=== PATIENT | female | born 1975 | race Caucasian/White ===

== ENCOUNTER → 2021-12-12 | Outpatient (CLI) | payer OTHER ==
--- NOTE | 2021-12-12 14:38 | MR ---
EXAMINATION TYPE: MR brain wo con DATE OF EXAM: 12/12/2021 1:07 PM COMPARISON: NONE HISTORY: DIZZINESS AND GIDDINESS, MAYERS Multiplanar and multispin-echo imaging of the brain was performed . The ventricles, basal cisterns and sulci overlying the cerebral convexities are within normal limits. There is no evidence for midline shift or mass effect. Acute intracranial hemorrhage or extra-axial collection is not evident. The brain parenchyma reveals no abnormal increased signal. No acute edema is identified. The paranasal sinuses and mastoid air cells are well-aerated. IMPRESSION: Unremarkable MRI of the brain.
--- NOTE | 2021-12-12 17:07 | US ---
EXAMINATION TYPE: US carotid duplex BILAT DATE OF EXAM: 12/12/2021 COMPARISON: NONE CLINICAL HISTORY: 46-year-old female R42 INTERMITTENT LIGHTHEADEDNESS. Left ear stabbing pain, headac hes, no h/o stroke TECHNIQUE: Carotid duplex ultrasound examination. Indirect Doppler criteria was utilized. FINDINGS: EXAM MEASUREMENTS: RIGHT: Peak Systolic Velocity (PSV) cm/sec ----- Right CCA: 93.0 ----- Right ICA: 92.7 ----- Right ECA: 84.8 ICA/CCA ratio: 1.0 RIGHT: End Diastole cm/sec ----- Right CCA: 19.2 ----- Right ICA: 57.9 ----- Right ECA: 15.3 LEFT: Peak Systolic Velocity (PSV) cm/sec ----- Left CCA: 104 ----- Left ICA: 84.3 ----- Left ECA: 79.4 ICA/CCA ratio: 0.8 LEFT: End Diastole cm/sec ----- Left CCA: 22.7 ----- Left ICA: 19.7 ----- Left ECA: 11.5 VERTEBRALS (direction of flow): Right Vertebral: Antegrade Left Vertebral: Antegrade Rhythm: Normal BUILDING CONSTRUCTION CONTRACTOR NOTES: Mild homogeneous plaque with no stenosis seen IMPRESSION: No hemodynamically significant internal carotid artery stenosis on either side. Criteria for Assigning % of Stenosis / Diameter reduction (Estimation based on the indirect measurements of the internal carotid artery velocities (ICA PSV). 1. Normal (no stenosis)=ICA PSV < 125 cm/s: ratio < 2.0: ICA EDV<40 cm/s. 2. Less than 50% stenosis=ICA PSV < 125 cm/s: ratio < 2.0: ICA EDV<40 cm/s. 3. 50 to 69% stenosis=ICA PSV of 125 to 230 cm/s: ration 2.0 ? 4.0: ICA EDV 40-100 cm/s. 4. Greater than 70% stenosis to near occlusion= ICA PSV > 230 cm/s: ratio > 4.0: ICA EDV > 100 cm/s. 5. Near occlusion= ICA PSV velocities may be low or undetectable: variable ratio and ICA EDV. 6. Total occlusion=unable to detect flow.
== END | disposition home or self-care (01) ==
LOC: RADMRIMAIN 12:24 → MERGE 12:30
PROVIDERS: ATTEND Family Medicine
DX: R42 Dizziness and giddiness (principal); R51.9 Headache, unspecified
CPT/HCPCS: 70551; 93880

== ENCOUNTER 2023-10-09 17:52 | Emergency (ER) | payer OTHER ==
[2023-10-09 17:59] VITALS: TEMP 98.1
--- NOTE | 2023-10-09 18:53 | ED ---
Abdominal Pain HPI - General Chief Complaint: Abdominal Pain Stated Complaint: severe abd pain Time Seen by Provider: 10/09/23 18:20 Source: patient Mode of arrival: ambulatory Limitations: no limitations - History of Present Illness Initial Comments: Patient is a 48-year-old female with no significant past medical history presenting for right lower quadrant and right hip pain. Patient states 2 weeks ago these pains began after having after "getting sick". Patient states she had 1 day of nausea and nonbloody nonbilious emesis which since resolved. The next day her daughter had similar symptoms so she assumed was a viral infection. Took a COVID test and it was negative. Since then she has had intermittent right-sided hip pain and sharp sharp right lower quadrant pains. 1 day last week patient felt like the backs of her thighs felt numb and this has since spontaneously resolved. She denies any back pain, falls or trauma. Denies any urinary incontinence or difficulty urinating. Is currently menstruating. Denies chance of . History of prior ectopic . No fevers, chills, current nausea and vomiting, black or bloody stools, chest pain or shortness of breath. Is currently comfortable, pain does seem to change with positions. - Related Data Previous Rx's Medication Instructions Recorded Omeprazole [PriLOSEC] 40 mg PO DAILY 14 Days #14 cap 10/09/23 Cyclobenzaprine [Flexeril] 10 mg PO TID PRN #30 tab 10/11/23 Lidocaine 5% Patch [Lidoderm 5% 1 patch TOPICAL DAILY PRN #30 patch 10/11/23 Patch] Naproxen Sodium 550 mg PO BID PRN #30 tablet 10/11/23 Allergies Allergy/AdvReac Type Severity Reaction Status Date / Time No Known Allergies Allergy Verified 10/11/23 13:16 Review of Systems ROS Statement: Those systems with pertinent positive or pertinent negative responses have been documented in the HPI. Past Medical History Past Medical History: No Reported History History of Any Multi-Drug Resistant Organisms: None Reported Past Surgical History: Uterine Ablation Additional Past Surgical History / Comment(s): Ectopic removal Past Psychological History: No Psychological Hx Reported Smoking Status: Former smoker Past Alcohol Use History: Daily Past Drug Use History: None Reported General Exam - General Exam Comments Initial Comments: PE: CONSTITUTIONAL: no apparent distress, well appearing SKIN: warm, dry, no jaundice, hives or petechiae EYES: pupils are equally round, extraocular movements intact without nystagmus, clear conjunctiva, non-icteric sclera HENT: normocephalic, atraumatic, moist mucus membranes, oropharynx clear without exudates NECK: full range of motion PULMONARY: clear to auscultation without wheezes, rhonchi, or rales, normal excursion, no accessory muscle use and no stridor CARDIOVASCULAR: regular rate, rhythm, normal S1 and S2. No appreciated murmurs. Strong radial pulses with intact distal perfusion GASTROINTESTINAL: soft, non-tender, non-distended, no palpable masses, no rebound or guarding, tenderness palpation of the right lower quadrant, negative Rovsing sign, no CVA tenderness LYMPHATICS: no edema in lower extremities MUSCULOSKELETAL: Extremities have no gross deformity, no edema, redness, or swelling, no midline spinal tenderness to palpation no tenderness palpation of the right hip or right lower extremity NEUROLOGIC: _a/o x 3, GCS 15, normal mentation and speech. Moves all extremities x 4 without motor or sensory deficit PSYCHIATRIC: _normal mood and affect, thought process is clear and linear Limitations: no limitations Course Vital Signs 10/09/23 10/09/23 17:55 22:39 Temperature 98.1 F Pulse Rate 88 79 Respiratory 18 16 Rate Blood Pressure 112/68 115/62 O2 Sat by Pulse 99 98 Oximetry Medical Decision Making - Medical Decision Making Was pt. sent in by a medical professional or institution (, PA, BEHAVIORAL THERAPIST, urgent care, hospital, or half-way...) When possible be specific @ -No Did you speak to anyone other than the patient for history (EMS, parent, family, police, friend...)? What history was obtained from this source @ -No Did you review nursing and triage notes (agree or disagree)? Why? @ -I reviewed and agree with nursing and triage notes Were old charts reviewed (outside hosp., previous admission, EMS record, old EKG, old radiological studies, urgent care reports/EKG's, half-way records)? Report findings @ -No old charts were reviewed Differential Diagnosis (chest pain, altered mental status, abdominal pain women, abdominal pain men, vaginal bleeding, weakness, fever, dyspnea, syncope, headache, dizziness, GI bleed, back pain, seizure, CVA, palpatations, mental health, musculoskeletal)? @ -Differential Abdominal Pain Women: Appendicitis, Cholecystitis, diverticulosis, UTI, gastroenteritis incarcerated hernia, bowel obstruction, constipation, hepatitis, peptic ulcer disease, ectopic , ovarian torsion, PID, kidney stone this is not meant to be an all-inclusive list What testing was considered but not performed or refused? (CT, X-rays, U/S, labs)? Why? @ -None What meds were considered but not given or refused? Why? @ -Considered administering Tylenol, muscle relaxant however patient currently pain-free and platelet declined pain control this time Did you discuss the management of the patient with other professionals (professionals i.e. , PA, BEHAVIORAL THERAPIST, lab, RT, psych nurse, director social welfare, mosaic tile maker, teacher, light armored vehicle officer, senior case manager)? Give summary @ -No Was smoking cessation discussed for >3mins.? @ -No Was critical care preformed (if so, how long)? @ -No Were there social determinants of health that impacted care today? How? (Homelessness, low income, unemployed, alcoholism, drug addiction, transportation, low edu. Level, literacy, decrease access to med. care, group home, rehab)? @ -No Was there de-escalation of care discussed even if they declined (Discuss DNR or withdrawal of care, Hospice)? DNR status @ -No What co-morbidities impacted this encounter? (DM, HTN, Smoking, COPD, CAD, Cancer, CVA, ARF, Chemo, Hep., AIDS, mental health diagnosis, sleep apnea, morbid obesity)? @ -None Was patient admitted / discharged? Hospital course, mention meds given and route, prescriptions, significant lab abnormalities, going to OR and other pertinent info. @ -Hospital course Patient is a healthy 48-year-old female presenting today for right lower quadrant abdominal pain with associated right hip pain. Labs reviewed, AST/ALT 38/36, small mount of blood in urine, rare mucus cells in urine, no signs of infection, CT abdomen pelvis showed no acute process. I agree with radiologist to rotation and reviewed the CT scan, I see no evidence of obstruction, appendicitis or other acute surgical process. hCG negative. Ultrasound significant for dominant follicle. CT abdomen pelvis shows no acute process, no ureterolithiasis. Urine does have blood in it however patient is currently menstruating. Patient currently denies any pain. We discussed plan for discharge home, follow-up with SHOE STITCHER ODD and PCP. Patient will begin omeprazole nightly. Patient is comfortable and agreeable with plan. In my medical judgment there is currently no evidence of an immediate life- threatening or surgical condition. Discharge is therefore indicated at this time. Discharge treatment instructions, follow up instructions, and appropriate emergency department return precautions were discussed with the patient and/or medical decision maker. Patient and/or medical decision maker expressed understanding of and agreed with the treatment plan, follow up instructions, and emergency department return precaution. All patient's and/or medical decision maker's questions were answered. The patient was advised that a small risk still exists that a serious condition could develop and was therefore instructed to return to the ED for any changes in symptoms, persistent symptoms, inability to obtain proper follow-up or for any further concerns. Patient received verbal and written instructions for this condition. Undiagnosed new problem with uncertain prognosis? @ -No Drug Therapy requiring intensive monitoring for toxicity (Heparin, Nitro, Insulin, Cardizem)? @ -No Were any procedures done? @ -No Diagnosis/symptom? @ -Right lower quadrant pain Acute, or Chronic, or Acute on Chronic? @ -Acute Side effects of treatment? @ -No Exacerbation, Progression, or Severe Exacerbation? @ -No - Lab Data Result diagrams: 10/09/23 19:40 10/09/23 19:40 Lab Results 10/09/23 10/09/23 10/09/23 Range/Units 19:40 19:40 19:40 WBC 8.8 (3.8-10.6) k/uL RBC 4.97 (3.80-5.40) m/uL Hgb 14.4 (11.4-16.0) gm/dL Hct 43.9 (34.0-46.0) % MCV 88.4 (80.0-100.0) fL MCH 28.9 (25.0-35.0) pg MCHC 32.7 (31.0-37.0) g/dL RDW 13.2 (11.5-15.5) % Plt Count 418 (150-450) k/uL MPV 8.0 Neutrophils % 68 % Lymphocytes % 23 % Monocytes % 7 % Eosinophils % 1 % Basophils % 1 % Neutrophils # 6.0 (1.3-7.7) k/uL Lymphocytes # 2.0 (1.0-4.8) k/uL Monocytes # 0.6 (0-1.0) k/uL Eosinophils # 0.1 (0-0.7) k/uL Basophils # 0.1 (0-0.2) k/uL PT 10.7 (10.0-12.5) sec INR 1.0 (<1.2) APTT 23.2 (22.0-30.0) sec Sodium 139 (137-145) mmol/L Potassium 4.7 (3.5-5.1) mmol/L Chloride 108 H (98-107) mmol/L Carbon Dioxide 22 (22-30) mmol/L Anion Gap 9 mmol/L BUN 10 (7-17) mg/dL Creatinine 0.62 (0.52-1.04) mg/dL Est GFR (CKD-EPI)AfAm >90 (>60 ml/min/1.73 sqM) Est GFR (CKD-EPI)NonAf >90 (>60 ml/min/1.73 sqM) Glucose 86 (74-99) mg/dL Plasma Lactic Acid Charlie (0.7-2.0) mmol/L Calcium 9.3 (8.4-10.2) mg/dL Total Bilirubin 0.9 (0.2-1.3) mg/dL AST 38 H (14-36) U/L ALT 36 H (4-34) U/L Alkaline Phosphatase 48 (38-126) U/L Total Protein 8.1 (6.3-8.2) g/dL Albumin 4.6 (3.5-5.0) g/dL Amylase 53 (30-110) U/L Lipase 52 (23-300) U/L Urine Color Urine Appearance (Clear) Urine pH (5.0-8.0) Ur Specific [place] (1.001-1.035) Urine Protein (Negative) Urine Glucose (UA) (Negative) Urine Ketones (Negative) Urine Blood (Negative) Urine Nitrite (Negative) Urine Bilirubin (Negative) Urine Urobilinogen (<2.0) mg/dL Ur Leukocyte Esterase (Negative) Urine RBC (0-5) /hpf Urine WBC (0-5) /hpf Ur Squamous Epith Cells (0-4) /hpf Urine Mucus (None) /hpf Urine HCG, Qual (Not Detectd) 10/09/23 10/09/23 10/09/23 Range/Units 19:40 19:41 19:41 WBC (3.8-10.6) k/uL RBC (3.80-5.40) m/uL Hgb (11.4-16.0) gm/dL Hct (34.0-46.0) % MCV (80.0-100.0) fL MCH (25.0-35.0) pg MCHC (31.0-37.0) g/dL RDW (11.5-15.5) % Plt Count (150-450) k/uL MPV Neutrophils % % Lymphocytes % % Monocytes % % Eosinophils % % Basophils % % Neutrophils # (1.3-7.7) k/uL Lymphocytes # (1.0-4.8) k/uL Monocytes # (0-1.0) k/uL Eosinophils # (0-0.7) k/uL Basophils # (0-0.2) k/uL PT (10.0-12.5) sec INR (<1.2) APTT (22.0-30.0) sec Sodium (137-145) mmol/L Potassium (3.5-5.1) mmol/L Chloride (98-107) mmol/L Carbon Dioxide (22-30) mmol/L Anion Gap mmol/L BUN (7-17) mg/dL Creatinine (0.52-1.04) mg/dL Est GFR (CKD-EPI)AfAm (>60 ml/min/1.73 sqM) Est GFR (CKD-EPI)NonAf (>60 ml/min/1.73 sqM) Glucose (74-99) mg/dL Plasma Lactic Acid Charlie 1.0 (0.7-2.0) mmol/L Calcium (8.4-10.2) mg/dL Total Bilirubin (0.2-1.3) mg/dL AST (14-36) U/L ALT (4-34) U/L Alkaline Phosphatase (38-126) U/L Total Protein (6.3-8.2) g/dL Albumin (3.5-5.0) g/dL Amylase (30-110) U/L Lipase (23-300) U/L Urine Color Colorless Urine Appearance Clear (Clear) Urine pH 6.5 (5.0-8.0) Ur Specific [place] 1.005 (1.001-1.035) Urine Protein Negative (Negative) Urine Glucose (UA) Negative (Negative) Urine Ketones Negative (Negative) Urine Blood Small H (Negative) Urine Nitrite Negative (Negative) Urine Bilirubin Negative (Negative) Urine Urobilinogen <2.0 (<2.0) mg/dL Ur Leukocyte Esterase Negative (Negative) Urine RBC 3 (0-5) /hpf Urine WBC 1 (0-5) /hpf Ur Squamous Epith Cells <1 (0-4) /hpf Urine Mucus Rare H (None) /hpf Urine HCG, Qual Not Detected (Not Detectd) Disposition Clinical Impression: Right lower quadrant pain Disposition: HOME SELF-CARE Condition: Good Instructions (If sedation given, give patient instructions): Abdominal Pain (ED) Additional Instructions: Every disease is a spectrum and a small chance still exists that a serious condition could develop, for this reason, please monitor yourself closely for new, changing or worsening symptoms, symptoms that persist beyond 1 week, lightheadedness, dizziness or episodes of passing out, black or bloody stools, fevers, pain that cannot be controlled with [id number] medications, fever,, inability to tolerate/keep down fluids or your medications, inability to follow up with outpatient providers as instructed and should you experience these symptoms or should you have any further concerns for your wellbeing please return to the ED or call 911 immediately. Please take omeprazole 40 mg nightly for 2 weeks, please avoid spicy, caffeinated, tomato-based foods. Please drink plenty of nonalcoholic and noncaffeinated fluids. PLEASE call your primary care physician as soon as possible to arrange / discuss plan for followup appointment. Appointment in the next 1-3 days is strongly encouraged if possible. Please follow-up with your Ob-steam boiler fireman, regarding US findings, dominant follicle and RLQ pain. PLEASE let us know here before you leave if there is anything further we can do to be of any assistance. Take care and feel Better! Prescriptions: Omeprazole [PriLOSEC] 40 mg PO DAILY 14 Days #14 cap Is patient prescribed a controlled substance at d/c from ED?: No Referrals: Annie Minor MD [Primary Care Provider] - 1-2 days Time of Disposition: 22:23
[2023-10-09] MEDS: SODIUM CHLORIDE 0.9% 1,000 ML IV STA (19:54)
[2023-10-09 20:28] LABS: ALT 36 U/L (4-34); African American GFR (CKD) >90 (>60 ml/min/1.73 sqM); Amylase 53 U/L (30-110); Anion Gap 9 mmol/L; Blood Urea Nitrogen 10 mg/dL (7-17); Calcium 9.3 mg/dL (8.4-10.2); Carbon Dioxide 22 mmol/L (22-30); Chloride 108 mmol/L (98-107); Glucose 86 mg/dL (74-99); Lipase 52 U/L (23-300); Non-African American GFR(CKD) >90 (>60 ml/min/1.73 sqM); Sodium 139 mmol/L (137-145)
[2023-10-09 20:33] LABS: AST 38 U/L (14-36); Potassium 4.7 mmol/L (3.5-5.1)
[2023-10-09 20:34] LABS: Albumin 4.6 g/dL (3.5-5.0); Alkaline Phosphatase 48 U/L (38-126); Total Bilirubin 0.9 mg/dL (0.2-1.3); Total Protein 8.1 g/dL (6.3-8.2)
[2023-10-09 20:37] LABS: Partial Thromboplastin Time 23.2 sec (22.0-30.0); Prothrombin Time 10.7 sec (10.0-12.5)
[2023-10-09 20:38] LABS: Appearance,Urine Clear (Clear); Bilirubin,Urine Negative (Negative); Blood,Urine Small (Negative); Color,Urine Colorless; Glucose,Urine (UA) Negative (Negative); Ketones,Urine Negative (Negative); Leukocyte Esterase,Urine Negative (Negative); Mucus,Urine Rare /hpf; Nitrite,Urine Negative (Negative); PH, Urine 6.5 (5.0-8.0); Protein,Urine Negative (Negative); RBC,Urine 3 /hpf (0-5); Specific Gravity,Urine 1.005 (1.001-1.035); Squamous Epithelial Cell,Urine <1 /hpf (0-4); Urobilinogen,Urine <2.0 mg/dL (<2.0); WBC,Urine 1 /hpf (0-5)
--- NOTE | 2023-10-09 20:41 | CT ---
EXAMINATION TYPE: CT abdomen pelvis w con CT DLP: 881.3 mGycm, Automated exposure control for dose reduction was used. DATE OF EXAM: 10/09/2023 8:25 PM COMPARISON: None. CLINICAL INDICATION:Female, 48 years old with history of abdominal pain; RLQ and sharp stabbing pelvi c pain. TECHNIQUE: Axial CT abdomen pelvis w con;Sagittal and coronal reformats were created on a separate w orkstation. Contrast used:100 mL of Isovue 300 with IV Contrast, (none if empty) Oral contrast used: without Oral Contrast (none if empty) FINDINGS: LOWER CHEST: Intrafissural lymph node series 201 image 10 on the right major fissure. ABDOMEN LIVER: Scattered simple appearing cysts. GALLBLADDER AND BILE DUCTS: Gallbladder is decompressed. PANCREAS: Unremarkable. SPLEEN: Unremarkable. ADRENAL GLANDS: Unremarkable. KIDNEYS AND URETERS: No evidence of hydronephrosis or renal calculus. The ureters are unremarkable. PELVIS BLADDER: Unremarkable REPRODUCTIVE: Unremarkable. ABDOMEN & PELVIS STOMACH AND BOWEL: No evidence of bowel obstruction. The appendix is normal. PERITONEUM/RETROPERITONEUM: No evidence of pneumoperitoneum or free fluid. VASCULATURE: No evidence of aortic aneurysm. MUSCULOSKELETAL: No acute osseous abnormalities LYMPH NODES: No gross evidence for lymphadenopathy. SOFT TISSUE/ABDOMINAL WALL: Fat-containing umbilical hernia. IMPRESSION: No evidence for obstructive uropathy or renal calculus. The appendix is normal. No acute right lower quadrant process.
[2023-10-09 20:53] LABS: Basophils # (A) 0.1 k/uL (0-0.2); Basophils % (A) 1 %; Eosinophils # (A) 0.1 k/uL (0-0.7); Eosinophils % (A) 1 %; HCT 43.9 % (34.0-46.0); HGB 14.4 gm/dL (11.4-16.0); Lymphocytes % (A) 23 %; MCH 28.9 pg (25.0-35.0); MCHC 32.7 g/dL (31.0-37.0); MCV 88.4 fL (80.0-100.0); Monocytes # (A) 0.6 k/uL (0-1.0); Monocytes % (A) 7 %; Neutrophils % (A) 68 %; Platelet Count 418 k/uL (150-450); RBC 4.97 m/uL (3.80-5.40); RDW 13.2 % (11.5-15.5); WBC 8.8 k/uL (3.8-10.6)
--- NOTE | 2023-10-09 21:32 | US ---
EXAMINATION TYPE: US transvaginal DATE OF EXAM: 10/09/2023 COMPARISON: 10/09/2023 CLINICAL INDICATION: Female, 48 years old with history of RLQ, right hip pain; Patient states right h ip pain for 2 weeks and right stabbing rlq pain that comes and goes. hx of ectopic and surg daniel for ectopic. TECHNIQUE: Transvaginal (TV). Transvaginal sonographic images were medically necessary to better as sess the following anatomy: Ovaries Date of LMP: 10/06/2023 EXAM MEASUREMENTS: Uterus: 9.1 x 4.1 x 4.9 cm Endometrial Stripe: 0.5 cm Right Ovary: 2.5 x 1.9 x 2.5 cm Left Ovary: Unable to visualize due to overlying bowel gas 1. Uterus: Anteverted There is a 1.3 x 0.5 x 1.2cm anechoic area seen within the right side of the ovary. There is a 1.7 x 0.6 x 1.5 anechoic area seen anterior to the cervix compatible with nabothia n cyst. 2. Endometrium: WNL 3. Right Ovary: There is a 1.3 x 1.0 x 1.1cm dominant follicle seen within the right ovary. 4. Left Ovary: Obscured by overlying bowel gas Spectral, color and waveform doppler imaging shows good arterial and venous flow within the ovaries ; there is no evidence for ovarian torsion. 5. Bilateral Adnexa: Obscured by overlying bowel gas IMPRESSION: No evidence for intrauterine gestation. Correlate with serum beta hCG to exclude ectopic gi ashli cystic adnexal right dimension by office technology professor on the right.
[2023-10-09 22:40] VITALS: BP 115/62; PULSE 79; RESP 16
== END 2023-10-09 22:42 | disposition home or self-care (01) ==
LOC: EC 17:52
DX: R10.31 Right lower quadrant pain (principal); Z87.891 Personal history of nicotine dependence
CPT/HCPCS: 36415; 80053; 82150; 83605; 83690; 85025; 85610; 85730; 81001; 81025; 93976; 76830; 74177; 99284; 96360; Q9967

== ENCOUNTER 2023-10-11 13:08 | Emergency (ER) | payer OTHER ==
[2023-10-11 13:17] VITALS: RESP 18; TEMP 98
[2023-10-11] MEDS: KETOROLAC 15 MG/ML 1 ML VIAL IVP STA ×2 (14:27→17:37)
[2023-10-11] MEDS: DEXAMETHASONE SOD PHOSPHATE 10 MG/ML 1 ML VIAL IVP STA (14:27)
[2023-10-11] MEDS: LIDOCAINE 4% PATCH TOPICAL ONE (14:28)
[2023-10-11] MEDS: ORPHENADRINE 30 MG/ML 2 ML VIAL IVP STA (14:28)
[2023-10-11] MEDS: ONDANSETRON 4 MG/2 ML VIAL IVP STA (14:28)
[2023-10-11] MEDS: SODIUM CHLORIDE 0.9% 1,000 ML IV STA (14:29)
[2023-10-11] MEDS: MORPHINE SULFATE 4 MG/ML SYRINGE IVP STA (14:39)
[2023-10-11 15:01] LABS: Basophils % (A) 0 %; Eosinophils # (A) 0.1 k/uL (0-0.7); Eosinophils % (A) 1 %; HCT 41.8 % (34.0-46.0); HGB 13.6 gm/dL (11.4-16.0); Lymphocytes # (A) 1.6 k/uL (1.0-4.8); Lymphocytes % (A) 22 %; MCH 28.8 pg (25.0-35.0); MCHC 32.5 g/dL (31.0-37.0); MCV 88.6 fL (80.0-100.0); Mean Platelet Volume 8.6; Monocytes # (A) 0.5 k/uL (0-1.0); Monocytes % (A) 7 %; Neutrophils # (A) 5.1 k/uL (1.3-7.7); Neutrophils % (A) 69 %; Platelet Count 420 k/uL (150-450); RBC 4.73 m/uL (3.80-5.40); RDW 13.1 % (11.5-15.5); WBC 7.4 k/uL (3.8-10.6)
--- NOTE | 2023-10-11 15:04 | ED ---
Abdominal Pain HPI - General Chief Complaint: Abdominal Pain Stated Complaint: Abdominal/Back Pain Time Seen by Provider: 10/11/23 13:48 Source: patient, RN notes reviewed Mode of arrival: ambulatory Limitations: no limitations - History of Present Illness Initial Comments: This is a 48-year-old female who presents to the emergency department for abdominal pain. States that for 2-3 weeks she's had pain in the right lower back, right hip, and right lower quadrant. She has some nausea that she attributes to being from the pain. Denies any fevers or chills. She was evaluated here for this 4 days ago and was told that something may be irregular with the right ovary. Pain has continued to persist. Denies any diarrhea or constipation. - Related Data Previous Rx's Medication Instructions Recorded Omeprazole [PriLOSEC] 40 mg PO DAILY 14 Days #14 cap 10/09/23 Cyclobenzaprine [Flexeril] 10 mg PO TID PRN #30 tab 10/11/23 Lidocaine 5% Patch [Lidoderm 5% 1 patch TOPICAL DAILY PRN #30 patch 10/11/23 Patch] Naproxen Sodium 550 mg PO BID PRN #30 tablet 10/11/23 Allergies Allergy/AdvReac Type Severity Reaction Status Date / Time No Known Allergies Allergy Verified 10/11/23 13:16 Review of Systems ROS Statement: Those systems with pertinent positive or pertinent negative responses have been documented in the HPI. ROS Other: All systems not noted in ROS Statement are negative. Past Medical History Past Medical History: No Reported History History of Any Multi-Drug Resistant Organisms: None Reported Past Surgical History: Uterine Ablation Additional Past Surgical History / Comment(s): Ectopic removal Past Psychological History: No Psychological Hx Reported Smoking Status: Former smoker Past Alcohol Use History: Daily Past Drug Use History: None Reported General Exam Limitations: no limitations General appearance: alert, in distress Head exam: Present: atraumatic, normocephalic, normal inspection Respiratory exam: Present: normal lung sounds bilaterally. Absent: respiratory distress, wheezes, rales, rhonchi, stridor Cardiovascular Exam: Present: regular rate, normal rhythm, normal heart sounds. Absent: systolic murmur, diastolic murmur, rubs, gallop, clicks GI/Abdominal exam: Present: soft, normal bowel sounds. Absent: distended, tenderness, guarding, rebound, rigid Back exam: Present: other (Tenderness to palpation over the right lower back) Neurological exam: Present: alert, oriented X3, CN II-XII intact Psychiatric exam: Present: normal affect, normal mood Skin exam: Present: warm, dry, intact, normal color. Absent: rash Course Vital Signs 10/11/23 13:13 Temperature 98 F Pulse Rate 80 Respiratory 18 Rate Blood Pressure 122/73 O2 Sat by Pulse 99 Oximetry Medical Decision Making - Medical Decision Making This is a 48 year old female who presents to the emergency department for back pain and abdominal pain. Was pt. sent in by a medical professional or institution? @ -No Did you speak to anyone other than the patient for history? @ -No Did you review nursing and triage notes? @ -Yes, and I agree, it is accurate with regards to the patient's symptoms. Were old charts reviewed? @ -CT scan of the abdomen and pelvis from 10/09/2023 demonstrating no acute process. Transvaginal ultrasound from 10/09/2023 demonstrating an anechoic area in the right side of the ovary suggestive of a dominant follicle. Differential Diagnosis? @ -Differential Back Pain: Strain, zoster, cauda equina syndrome, epidural abscess, vertebral osteomyelitis, discitis, fracture, subluxation, disc herniation, DJD, spinal stenosis, dissection, AAA, pancreatitis, peptic ulcer disease, pyelonephritis, kidney stone, this is not meant to be an all-inclusive list. EKG interpreted by me (3pts min.)? @ -Not obtained X-rays interpreted by me (1pt min.)? @ -Not obtained CT interpreted by me (1pt min.)? @ -Not obtained U/S interpreted by me (1pt. min.)? @ -Transvaginal ultrasound obtained. My interpretation identifies no evidence of an ovarian torsion. What testing was considered but not performed? (CT, X-rays, U/S, labs)? Why? @ -None What meds were considered but not given? Why? @ -None Did you discuss the management of the patient with other professionals? @ -No Did you reconcile home meds? @ -No Was smoking cessation discussed for >3mins.? @ -No Was critical care preformed (if so, how long)? @ -No Were there social determinants of health that impacted care today? How? (Homelessness, low income, unemployed, alcoholism, drug addiction, transportat ion, low edu. Level, literacy, decrease access to med. care, senior care, rehab)? @ -No Was there de-escalation of care discussed even if they declined? (Discuss DNR or withdrawal of care, Hospice)? @ -No What co-morbidities impacted this encounter? (DM, HTN, Smoking, COPD, CAD, Cancer, CVA, Hep., AIDS, mental health diagnosis, sleep apnea, morbid obesity)? @ -None Was patient admitted / discharged? @ -Discharged. Lab work unremarkable. Urinalysis negative for signs of infection. CT scan of the abdomen and pelvis from 10/09/2023 reviewed demonstrating no acute process. Transvaginal ultrasound from 10/09/2023 demonstrates a dominant follicle in the right side of the ovary. We discussed a repeat ultrasound today, which the patient was agreeable to. This revealed no acute process. Her back and hip pain were well-controlled in the emergency department. However, she did continue to have intermittent cramping in the right side of the pelvis. We discussed that we cannot find a clear cause of her symptoms at this time, and given the duration of 2 to 3 weeks an acute intra- abdominal pathology would be very unlikely, especially in light of negative imaging 2 days ago. The back and hip pain may be related to a musculoskeletal issue. She was given prescriptions for naproxen, Flexeril, and lidocaine patches. Advised close follow-up with her primary care provider. Patient discharged home in stable condition. Case discussed with ED attending Dr. Hannon. Return precautions reviewed in depth, the patient is instructed to return to the emergency department with any new, worsening, or concerning symptoms. Patient verbalized understanding. Undiagnosed new problem with uncertain prognosis? @ -None Drug Therapy requiring intensive monitoring for toxicity (Heparin, Nitro, Insulin, Cardizem)? @ -None Were any procedures done? @ -None Diagnosis/symptom? @ -Abdominal pain, back pain Acute, or Chronic, or Acute on Chronic? @ -Acute Uncomplicated (without systemic symptoms) or Complicated (systemic symptoms)? @ -Uncomplicated Side effects of treatment? @ -None Exacerbation, Progression, or Severe Exacerbation] @ -Not applicable Poses a threat to life or bodily function? @ -Unlikely - Lab Data Result diagrams: 10/11/23 14:30 10/11/23 14:30 Lab Results 10/11/23 10/11/23 10/11/23 Range/Units 14:30 14:30 14:30 WBC 7.4 (3.8-10.6) k/uL RBC 4.73 (3.80-5.40) m/uL Hgb 13.6 (11.4-16.0) gm/dL Hct 41.8 (34.0-46.0) % MCV 88.6 (80.0-100.0) fL MCH 28.8 (25.0-35.0) pg MCHC 32.5 (31.0-37.0) g/dL RDW 13.1 (11.5-15.5) % Plt Count 420 (150-450) k/uL MPV 8.6 Neutrophils % 69 % Lymphocytes % 22 % Monocytes % 7 % Eosinophils % 1 % Basophils % 0 % Neutrophils # 5.1 (1.3-7.7) k/uL Lymphocytes # 1.6 (1.0-4.8) k/uL Monocytes # 0.5 (0-1.0) k/uL Eosinophils # 0.1 (0-0.7) k/uL Basophils # 0.0 (0-0.2) k/uL Sodium (137-145) mmol/L Potassium (3.5-5.1) mmol/L Chloride (98-107) mmol/L Carbon Dioxide (22-30) mmol/L Anion Gap mmol/L BUN (7-17) mg/dL Creatinine (0.52-1.04) mg/dL Est GFR (CKD-EPI)AfAm (>60 ml/min/1.73 sqM) Est GFR (CKD-EPI)NonAf (>60 ml/min/1.73 sqM) Glucose (74-99) mg/dL Plasma Lactic Acid Charlie (0.7-2.0) mmol/L Calcium (8.4-10.2) mg/dL Total Bilirubin (0.2-1.3) mg/dL AST (14-36) U/L ALT (4-34) U/L Alkaline Phosphatase (38-126) U/L Total Protein (6.3-8.2) g/dL Albumin (3.5-5.0) g/dL Amylase (30-110) U/L Lipase (23-300) U/L Urine Color Colorless Urine Appearance Clear (Clear) Urine pH 6.5 (5.0-8.0) Ur Specific [place] 1.004 (1.001-1.035) Urine Protein Negative (Negative) Urine Glucose (UA) Negative (Negative) Urine Ketones Negative (Negative) Urine Blood Trace H (Negative) Urine Nitrite Negative (Negative) Urine Bilirubin Negative (Negative) Urine Urobilinogen <2.0 (<2.0) mg/dL Ur Leukocyte Esterase Negative (Negative) Urine RBC 2 (0-5) /hpf Urine WBC 2 (0-5) /hpf Ur Squamous Epith Cells 3 (0-4) /hpf Urine Bacteria Rare H (None) /hpf Urine Mucus Rare H (None) /hpf Urine HCG, Qual Not Detected (Not Detectd) 10/11/23 10/11/23 Range/Units 14:30 14:30 WBC (3.8-10.6) k/uL RBC (3.80-5.40) m/uL Hgb (11.4-16.0) gm/dL Hct (34.0-46.0) % MCV (80.0-100.0) fL MCH (25.0-35.0) pg MCHC (31.0-37.0) g/dL RDW (11.5-15.5) % Plt Count (150-450) k/uL MPV Neutrophils % % Lymphocytes % % Monocytes % % Eosinophils % % Basophils % % Neutrophils # (1.3-7.7) k/uL Lymphocytes # (1.0-4.8) k/uL Monocytes # (0-1.0) k/uL Eosinophils # (0-0.7) k/uL Basophils # (0-0.2) k/uL Sodium 138 (137-145) mmol/L Potassium 4.3 (3.5-5.1) mmol/L Chloride 107 (98-107) mmol/L Carbon Dioxide 22 (22-30) mmol/L Anion Gap 9 mmol/L BUN 8 (7-17) mg/dL Creatinine 0.66 (0.52-1.04) mg/dL Est GFR (CKD-EPI)AfAm >90 (>60 ml/min/1.73 sqM) Est GFR (CKD-EPI)NonAf >90 (>60 ml/min/1.73 sqM) Glucose 86 (74-99) mg/dL Plasma Lactic Acid Charlie 1.8 (0.7-2.0) mmol/L Calcium 9.6 (8.4-10.2) mg/dL Total Bilirubin 1.3 (0.2-1.3) mg/dL AST 34 (14-36) U/L ALT 35 H (4-34) U/L Alkaline Phosphatase 62 (38-126) U/L Total Protein 7.9 (6.3-8.2) g/dL Albumin 4.7 (3.5-5.0) g/dL Amylase 57 (30-110) U/L Lipase 31 (23-300) U/L Urine Color Urine Appearance (Clear) Urine pH (5.0-8.0) Ur Specific [place] (1.001-1.035) Urine Protein (Negative) Urine Glucose (UA) (Negative) Urine Ketones (Negative) Urine Blood (Negative) Urine Nitrite (Negative) Urine Bilirubin (Negative) Urine Urobilinogen (<2.0) mg/dL Ur Leukocyte Esterase (Negative) Urine RBC (0-5) /hpf Urine WBC (0-5) /hpf Ur Squamous Epith Cells (0-4) /hpf Urine Bacteria (None) /hpf Urine Mucus (None) /hpf Urine HCG, Qual (Not Detectd) - Radiology Data Radiology results: report reviewed, image reviewed Disposition Clinical Impression: Abdominal pain, Back pain Disposition: HOME SELF-CARE Instructions (If sedation given, give patient instructions): Abdominal Pain (ED), Back Pain (ED) Additional Instructions: Return to the emergency department with any new, worsening, or concerning symptoms. Take the naproxen twice daily with Tylenol as needed for pain relief. Take the Flexeril up to 3 times daily. You can also apply the lidocaine patches daily. Try applying the capsaicin cream provided to the affected areas 2-3 times daily to see if that offers any additional benefit. You can also try using a heating pack. Follow up with your primary care provider in 1-2 days. Prescriptions: Cyclobenzaprine [Flexeril] 10 mg PO TID PRN #30 tab PRN Reason: Pain Lidocaine 5% Patch [Lidoderm 5% Patch] 1 patch TOPICAL DAILY PRN #30 patch PRN Reason: Pain Naproxen Sodium 550 mg PO BID PRN #30 tablet PRN Reason: Pain Is patient prescribed a controlled substance at d/c from ED?: No Referrals: Annie Minor MD [Primary Care Provider] - 1-2 days Time of Disposition: 18:07
[2023-10-11 15:12] LABS: Appearance,Urine Clear (Clear); Bacteria,Urine Rare /hpf; Bilirubin,Urine Negative (Negative); Blood,Urine Trace (Negative); Color,Urine Colorless; Glucose,Urine (UA) Negative (Negative); Ketones,Urine Negative (Negative); Leukocyte Esterase,Urine Negative (Negative); Mucus,Urine Rare /hpf; Nitrite,Urine Negative (Negative); PH, Urine 6.5 (5.0-8.0); Protein,Urine Negative (Negative); RBC,Urine 2 /hpf (0-5); Specific Gravity,Urine 1.004 (1.001-1.035); Squamous Epithelial Cell,Urine 3 /hpf (0-4); Urobilinogen,Urine <2.0 mg/dL (<2.0); WBC,Urine 2 /hpf (0-5)
[2023-10-11 15:14] LABS: ALT 35 U/L (4-34); African American GFR (CKD) >90 (>60 ml/min/1.73 sqM); Albumin 4.7 g/dL (3.5-5.0); Amylase 57 U/L (30-110); Anion Gap 9 mmol/L; Blood Urea Nitrogen 8 mg/dL (7-17); Calcium 9.6 mg/dL (8.4-10.2); Carbon Dioxide 22 mmol/L (22-30); Chloride 107 mmol/L (98-107); Glucose 86 mg/dL (74-99); Lipase 31 U/L (23-300); Non-African American GFR(CKD) >90 (>60 ml/min/1.73 sqM); Sodium 138 mmol/L (137-145); Total Bilirubin 1.3 mg/dL (0.2-1.3); Total Protein 7.9 g/dL (6.3-8.2)
[2023-10-11 15:49] LABS: AST 34 U/L (14-36); Alkaline Phosphatase 62 U/L (38-126); Potassium 4.3 mmol/L (3.5-5.1)
[2023-10-11] MEDS: DICYCLOMINE 10 MG/ML 2 ML AMP IM STA (17:37)
[2023-10-11] MEDS: CAPSAICIN 0.025% CREAM 60 GM TUBE TOPICAL STA (17:39)
--- NOTE | 2023-10-11 18:01 | US ---
EXAMINATION TYPE: US transvaginal DATE OF EXAM: 10/11/2023 COMPARISON: CT and US 2 days ago CLINICAL INDICATION: Female, 48 years old with history of Progressive pelvic pain; rt side pelvic/tracie k pain x 2 weeks TECHNIQUE: Transvaginal (TV). Transvaginal sonographic images were medically necessary to better as sess the following anatomy: Ovaries and uterus. Date of LMP: 10/05/23 EXAM MEASUREMENTS: Uterus: 8.3x4.9x4.9 cm Endometrial Stripe: 0.7 cm Right Ovary: 2.4x1.8x1.9 cm Left Ovary: 2.2x1.6x2.8 cm 1. Uterus: Anteverted nabothian cysts again seen 2. Endometrium: wnl 3. Right Ovary: wnl 4. Left Ovary: wnl Spectral, color and waveform doppler imaging shows good arterial and venous flow within the ovaries ; there is no evidence for ovarian torsion. 5. Bilateral Adnexa: Obscured by overlying bowel gas 6. Posterior cul-de-sac: wnl IMPRESSION: No acute process is detected. No indication of ovarian torsion.
[2023-10-11] MEDS: traMADol 50 MG STARTER PACK 3 TAB BTL PO STA (18:38)
[2023-10-11 18:42] VITALS: BP 130/78; PULSE 87
== END 2023-10-11 18:42 | disposition home or self-care (01) ==
LOC: EC 13:08
DX: R10.31 Right lower quadrant pain (principal); M54.9 Dorsalgia, unspecified; Z87.891 Personal history of nicotine dependence
CPT/HCPCS: 36415; 80053; 82150; 83605; 83690; 85025; 81001; 81025; 84702; 93975; 76830; 99284; 96374; 96375 ×2; 96376; 96361; 96372; J0500; J1100; J2360; J2405; J1885

== ENCOUNTER 2024-01-01 12:47 | Day surgery (SDC) | payer OTHER ==
[~2024-01-01 12:47] MED LIST: LIDOCAINE 1% (10MG/ML) FOR IV START INTRADERMA PRN
[2024-01-01] MEDS: IV FLUID CONTINUATION 1,000 ML IV ONE (13:17)
[2024-01-01 13:29] VITALS: RESP 16; TEMP 98.2
[2024-01-01] MEDS: LACTATED RINGERS 1,000 ML IV SCH (13:40)
[2024-01-01] MEDS ORDERED: PROPOFOL 10 MG/ML 20 ML VIAL IV ONE (13:44)
[2024-01-01] MEDS ORDERED: LIDOCAINE 1% INJ 10MG/ML (20 ML MDV) ONE (13:44)
--- NOTE | 2024-01-01 14:23 | P.PCN ---
Date of Procedure: 01/01/24 Procedure(s) Performed: BRIEF HISTORY: Patient is a 48-year-old pleasant white male scheduled for an elective colonoscopy as a part of screening for colon cancer PROCEDURE PERFORMED: Colonoscopy with snare polypectomy. PREOPERATIVE DIAGNOSIS: Screening for colon cancer. IV sedation per Anesthesia. PROCEDURE: After informed consent was obtained, the patient, was brought into the endoscopy unit. IV sedation was administered by Anesthesia under continuous monitoring. Digital rectal examination was normal. Initially the Olympus CF-160 flexible video colonoscope was then inserted in the rectum, gradually advanced into the cecum without any difficulty. Careful examination was performed as the scope was gradually being withdrawn. Ileocecal valve and the appendiceal orifice were visualized and appeared normal. Prep was excellent. Mucosa of the cecum, ascending colon, transverse colon, appeared normal. In the descending colon there was a 6 mm polyp removed by cold snare polypectomy. Rest of the descending colon, sigmoid colon, and rectum appeared normal. In the proximal rectum there was a 5 mm polyp removed by cold snare polypectomy. Retroflexion was performed in the rectum and no lesions were seen. The patient tolerated the procedure well. IMPRESSION: 6 mm descending colon polyp status post cold snare polypectomy 5 mm rectal polyp status post cold snare polypectomy RECOMMENDATIONS: Findings of this examination were discussed with the patient as well as her family. She was advised to follow-up with the biopsy results. If the biopsy reveals adenoma she can have repeat colonoscopy in 5 years.
[2024-01-01 14:48] VITALS: BP 104/70; PULSE 64
== END 2024-01-01 15:05 | disposition home or self-care (01) ==
LOC: ORWHC2ENDO 12:47
PROVIDERS: ATTEND Internal Medicine Gastroenterology
CPT/HCPCS: 45385; 81025; 88305

== ENCOUNTER → 2024-02-04 | Outpatient (CLI) | payer OTHER ==
--- NOTE | 2024-02-04 11:42 | MM ---
Reason for Exam: Screening (asymptomatic). Baseline mammogram. Patient History: Menarche at age 13. First Full-Term at age 33. Late child-bearing (after 29). Patient has history of breast feeding. Paternal grandfather had breast cancer. Paternal aunt had breast cancer. Last menstrual period: 01/14/2024 Risk Values: Maria Luisa 5 year model risk: 1.2%. NCI Lifetime model risk: 11.3%. Prior Study Comparison: Patient's first Mammogram. Tissue Density: The breasts are heterogeneously dense, which may obscure small masses. Findings: Analyzed By CAD. Right breast: There is no suspicious group of microcalcifications or new suspicious mass. Left breast: There is no suspicious group of microcalcifications or new suspicious mass. Overall Assessment: Negative, BI-RAD 1 Management: Screening Mammogram of both breasts in [address] [facility] will attempt to contact patient to return for supplemental views and ultrasound if indicated. Patient should continue monthly self-breast exams. A clinical breast exam by your physician is recommended on an annual basis. This exam should not preclude additional follow-up of suspicious palpable abnormalities. Note on Maria Luisa scores and lifetime risk: 1. A Maria Luisa score greater than 3% is considered moderate risk. If this is the case, consider specialist referral to assess eligibility for a risk reducing agent. 2. If overall lifetime risk for the development of breast cancer is 20% or higher, the patient may qualify for future screening with alternating mammogram and breast MRI. [facility], , 02/04/2024 11:39 AM. Electronically signed and approved by: Devon Thomas DO
== END | disposition home or self-care (01) ==
LOC: RADMAMWWP 09:48
PROVIDERS: ATTEND Family Medicine
DX: Z12.31 Encounter for screening mammogram for malignant neoplasm of breast (principal); R92.333 Mammographic heterogeneous density, bilateral breasts; Z80.3 Family history of malignant neoplasm of breast
CPT/HCPCS: 77067

== ENCOUNTER → 2024-06-25 | Outpatient (CLI) | payer OTHER ==
--- NOTE | 2024-06-25 15:34 | US ---
EXAMINATION TYPE: US thyroid st tissue head/neck DATE OF EXAM: 06/25/2024 COMPARISON: NONE CLINICAL INDICATION: Female, 49 years old with history of R20.2 PARESTHESIA R42 LIGHTHEADED; possible Hashimotos TECHNIQUE: Grayscale and color Doppler imaging of the thyroid gland. FINDINGS: GLAND SIZE: Right Lobe: 5.0 x 1.6 x 1.8 cm Overall Parenchyma: heterogeneous Left Lobe: 4.5 x 1.5 x 1.2 cm Overall Parenchyma: heterogeneous Isthmus Thickness: 0.2 cm NODULES RIGHT: # of nodules measured on right: measured largest 1 1. 0.7 X 0.8 x 0.5 cm, mid, solid or almost completely solid, hypoechoic nodule, which is wider jose n tall, with smooth margins, without echogenic foci. 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 1.0 X 0.9 x 0.6 cm, mid , solid or almost completely solid, hypoechoic nodule, which is wider th an tall, with smooth margins, without echogenic foci. TR 4 Prior size: COFFEE BREAK ATTENDANT ISTHMUS: # of nodules measured in the isthmus: 0 Bilateral neck scanned, no evidence of lymphadenopathy. IMPRESSION: 1. Moderately suspicious nodule left lobe thyroid. Follow-up in one year is recommended Highest TI-RADS level nodule reported: 2017 ACR TI-RADS LEVEL: TI-RADS 4 - Moderately Suspicious: Follow if > 1 cm, FNA if > 1.5 cm TI-RADS assessment score and recommendation for follow-up based on appropriate scoring and treatment protocols. TR3: If nodule size is ? 2.5 cm, FNA is recommended. If nodule size is ? 1.5 cm, follow-up imaging at 1, 3, and 5 years is recommended. TR4: If nodule size is ? 1.5 cm, FNA is recommended. If nodule size is ? 1.0 cm, follow-up imaging at 1, 2, 3, and 5 years is recommended. TR5: If nodule size is ? 1.0 cm, FNA is recommended. If nodule size is ? 0.5 cm, annual follow-up for up to 5 years is recommended. [email or web address] [facility], , 06/25/2024 3:32 PM
--- NOTE | 2024-06-25 15:35 | US ---
EXAMINATION TYPE: US carotid duplex BILAT DATE OF EXAM: 06/25/2024 COMPARISON: NONE CLINICAL INDICATION: Female, 49 years old with history of R20.2 PARESTHESIA R42 LIGHTHEADED; lighthea ded Additional History: .... TECHNIQUE: Grayscale, color Doppler and spectral Doppler evaluation of the bilateral carotid systems and vertebral arteries. Indirect Doppler criteria was utilized. FINDINGS: EXAM MEASUREMENTS: RIGHT: Peak Systolic Velocity (PSV) cm/sec ----- Right CCA: 97.4 ----- Right ICA: 146.0 ----- Right ECA: 127.0 ICA/CCA ratio: 1.5 RIGHT: End Diastole cm/sec ----- Right CCA: 27.9 ----- Right ICA: 24.7 ----- Right ECA: 13.6 LEFT: Peak Systolic Velocity (PSV) cm/sec ----- Left CCA: 98.7 ----- Left ICA: 118.0 ----- Left ECA: 138.0 ICA/CCA ratio: 1.2 LEFT: End Diastole cm/sec ----- Left CCA: 10.3 ----- Left ICA: 28.6 ----- Left ECA: 26.3 VERTEBRALS (direction of flow): Right Vertebral: Antegrade Left Vertebral: Antegrade Rhythm: Normal HOMEOPATHIC DOCTOR NOTES: Mild homogeneous plaque Color Doppler imaging shows patency with blood flow throughout the carotid artery. Spectral waveforms are within normal limits. IMPRESSION: Right: Atheromatous plaquing with velocities measuring has moderate narrowing between 50 and 69%. Left: No significant flow-limiting stenosis based on velocities. Criteria for Assigning % of Stenosis / Diameter reduction (Estimation based on the indirect measurements of the internal carotid artery velocities (ICA PSV). 1. Normal (no stenosis)=ICA PSV < 180 cm/s: ratio < 2.0: ICA EDV<40 cm/s. 2. Less than 50% stenosis=ICA PSV < 180 cm/s: ratio < 2.0: ICA EDV<40 cm/s. 3. 50 to 69% stenosis=ICA PSV of 180 to 230 cm/s: ration 2.0 ? 4.0: ICA EDV 40-100 cm/s. PSV 125-180 cm/sec and ICA/CCA PSV Ratio ? 2.0 is also consistent with 50-69% stenosis 4. Greater than 70% stenosis to near occlusion= ICA PSV > 230 cm/s: ratio > 4.0: ICA EDV > 100 cm/s. 5. Near occlusion= ICA PSV velocities may be low or undetectable: variable ratio and ICA EDV. 6. Total occlusion=unable to detect flow. [facility], , 06/25/2024 3:33 PM
== END | disposition home or self-care (01) ==
LOC: RADUSWWP 14:29
PROVIDERS: ATTEND Family Medicine
DX: E04.2 Nontoxic multinodular goiter (principal); I65.21 Occlusion and stenosis of right carotid artery; R63.5 Abnormal weight gain; R20.2 Paresthesia of skin
CPT/HCPCS: 76536; 93880